=== PATIENT | female | born 1955 | race Caucasian/White ===

== ENCOUNTER → 2018-08-26 09:50 | Emergency (ER) | payer BC ==
[~2018-08-26 09:50] MED LIST: Aspirin 81 mg CHEW TAB* 81 MG TAB.CHEW PO ONE
--- NOTE | 2018-08-26 10:22 | ED ---
HPI Chest Pain - HPI Summary HPI Summary: Pt is a 63 y/o F presenting to the ED with a chief complaint of chest pain, substernal squeezing pain onset this morning around 0800 on her walk. The pain is currently rated a 2-3 out of 10, and it does not radiate. She states she has had this pain before and it usually stays present if she stops walking, and that she does not take medication to help with it. She does not currently take aspirin. She reports feeling a lump in her throat. She denies any diagnosed hx of anxiety, but reports that when she gets palpitations that worsens her anxiety. The pt reports hx of hypothyroidism, is on medication for it, and has not had surgery or nodules associated with it. She also had diet-controlled diabetes mellitus. She reports additional personal history of pilonidal cyst and fam hx of heart disease. She had a stress test done in 2017 that came back completely normal. Pt saw Dr. Cristina, her PCP, two days ago and he noted changes on the EKG that could connote a prior CA, so when pt developed chest discomfort with exertion, she decided to come to the ED for further evaluation. Vitals in room: 71bpm, 142/77 BP, 14 respirations, 100% SaO2. Home Medications Medication Instructions Recorded Confirmed Type [place] Thyroid 120 mcg PO DAILY 06/21/14 06/21/14 History Ibuprofen TAB* 100 mg PO TID PRN 06/21/14 06/21/14 History - History of Current Complaint Chief Complaint: EDChestPainROMI Time Seen by Provider: 08/26/18 10:07 Hx Obtained From: Patient, Family/Clinical Trial Head - , Other: - Dr. Cristina prior to DC Onset/Duration: Started Hours Ago, Atraumatic, Still Present Timing: Intermittent, Lasting Hours Initial Severity: Mild Current Severity: Mild Pain Intensity: 2 Pain Scale Used: 0-10 Numeric Chest Pain Location: Lower Sternal Chest Pain Radiates: No Character: Pressure/Squeezing Aggravating Factor(s): Exertion Alleviating Factor(s): Spontaneous Resolution Associated Signs and Symptoms: Positive: Chest Pain, Anxiety, Palpitations - Risk Factors AMI/ACS Risk Factors: Diabetes, Family History - Allergy/Home Medications Allergies/Adverse Reactions: Allergies Allergy/AdvReac Type Severity Reaction Status Date / Time No Known Allergies Allergy Verified 06/21/14 08:14 PMH/Surg Hx/FS Hx/Imm Hx Previously Healthy: Yes Endocrine/Hematology History: Reports: Hx Diabetes - "diet controlled", Hx Thyroid Disease - hypothyroidism Cardiovascular History: Denies: Hx Hypertension Respiratory History: Denies: Hx Asthma, Hx Chronic Obstructive Pulmonary Disease (COPD) GI History: Denies: Hx Ulcer - Cancer History Hx Chemotherapy: No Hx Radiation Therapy: No - Surgical History Surgery Procedure, Year, and Place: 1978, 1983 Infectious Disease History: No Infectious Disease History: Denies: Hx Clostridium Difficile, Hx Hepatitis, Hx Human Immunodeficiency Virus (HIV), Hx of Known/Suspected MRSA, Hx Shingles, Hx Tuberculosis, Hx Known/ Suspected VRE, Hx Known/Suspected VRSA, History Other Infectious Disease, Traveled Outside the [place] in Last 30 Days - Family History Known Family History: Positive: Cardiac Disease - grandfather CA @ 56, father CABG at 70. - Social History Lives: With Family Alcohol Use: Occasionally Hx Substance Use: No Substance Use Type: Reports: None Hx Tobacco Use: No Smoking Status (MU): Never Smoked Tobacco Review of Systems Constitutional: Negative Positive: Other - "lump in throat" Positive: Chest Pain Respiratory: Negative Gastrointestinal: Negative Positive: no symptoms reported Musculoskeletal: Negative Skin: Negative Neurological: Negative Positive: Anxious - states she is anxious All Other Systems Reviewed And Are Negative: Yes Physical Exam - Summary Physical Exam Summary: Appearance: well-appearing, minimal pain distress, well-nourished Skin: Warm, color reflects adequate perfusion, dry Head: Normal Head/Face inspection, atraumatic Eyes: Conjunctiva clear ENT: Normal inspection Neck: Supple, no nodes, no JVD, thyroid nonpalpable Respiratory: Lungs clear, normal breath sounds, no respiratory distress Cardio: RRR, No murmur, pulses normal, brisk capillary refill Abdomen: Soft, nontender Bowel sounds: Present Musculoskeletal: Strength Intact/ROM intact, no calf tenderness, no edema. Psychological: states she is anxious, but able to lie flat, no tremor, speech clear and fluent Neuro: Alert, muscle tone normal, no focal deficit Triage Information Reviewed: Yes Vital Signs On Initial Exam: Initial Vitals Temp Pulse Resp BP Pulse Ox 97.5 F 65 18 141/92 100 08/26/18 09:52 08/26/18 09:52 08/26/18 09:52 08/26/18 09:52 08/26/18 09:52 Vital Signs Reviewed: Yes Diagnostics - Vital Signs Vital Signs Temp Pulse Resp BP Pulse Ox 08/26/18 09:52 97.5 F 65 18 141/92 100 - Laboratory Result Diagrams: 08/26/18 10:19 08/26/18 10:19 Lab Statement: Any lab studies that have been ordered have been reviewed, and results considered in the medical decision making process. - Radiology CXR Radiology Interpretation Completed By: Radiologist Summary of Radiographic Findings: No evidence for acute disease. ED physician has reviewed this report. - EKG 1006 Cardiac Rate: NL - 60bpm EKG Rhythm: Sinus Rhythm ST Segment: Non-Specific Ectopy: None EKG Comparison: No Significant Change - from 11/06/12 Summary of EKG Findings: SR nl AVIVCT, nl QTc L axis (-33). Poor R wave progression in V1-V3.(unchanged per discussion with Dr. Cristina from 2 days prior). 1449 Cardiac Rate: Bradycardia - 55bpm EKG Rhythm: Sinus Bradycardia ST Segment: Non-Specific Ectopy: PVCs EKG Comparison: No Significant Change - from prior EKG today Summary of EKG Findings: EKG at 1449 shows sinus bradycardia at 55bpm, nonspecific ST, PVCs, and poor R wave progression in V1-V3. No significant change compared with earlier today. Re-Evaluation - Re-Evaluation 1st re-eval Re-Evaluation Time: 11:31 Change: Improved Comment: Discussed results and plan with the pt who is agreeable with staying for the second troponin. Pt reports he squeezing is now intermittent, still rated at 2/10. Vitals in room on re-eval: 125/71 BP, 52bpm, 96% SaO2, and 22 respirations. Pt reports normal HR is between 50 and 55. Second Eval Re-Evaluation Time: 14:30 Change: Improved Comment: Pt states chest pain is minimal, 1-2 at most. Pt is lying flat comfortably. Advised of labs, second EKG ordered to correspond with second troponin, and awaiting discussion with Dr. Cristina, pt's PCP. 3rd re-eval Re-Evaluation Time: 15:33 Change: Improved Comment: Pt informed of results, is presently pain free, and agreeable with the plan of discharge. Chest Pain Course/Dx - Course Course Of Treatment: Pt is a 63 y/o F presenting to the ED with a chief complaint of chest pain, substernal squeezing pain onset this morning around 0800 on her walk. The pain is currently rated a 2-3 out of 10, and it does not radiate. She states she has had this pain before and it usually stays present if she stops walking, and that she does not take medication to help with it. She does not currently take aspirin. She reports feeling a lump in her throat. She denies any diagnosed hx of anxiety, but reports that when she gets palpitations that worsens her anxiety. The pt reports hx of hypothyroidism, is on medication for it, and has not had surgery or nodules associated with it. She also had diet-controlled diabetes mellitus. She reports additional personal history of pilonidal cyst and fam hx of heart disease. She had a stress test done in 2017 that came back completely normal. Pt had an EKG [address] Cristina's office that showed sinus herber and poor R wave progression V1-V3. ( discussed with Dr. Cristina by phone). Vitals in room: 71bpm, 142/77 BP, 14 respirations, 100% SaO2. Pt was given ASA 324mg po in the ED. Nurses notes reviewed. Pts medications reviewed this visit. Pts lab results show Hct 43 D- Dimer of 213, glucose of 159, lactic acid of 1.1, and troponin I of 0.00 x 2 three hours apart. CXR shows no evidence for acute disease. An EKG shows NSR at 60bpm, nonspecific ST changes including poor R wave progression V1-V3, no ectopy , and no acute changes compared with 11/06/12. Second EKG also showed SB, with poor R wave progression V1-V3, PVC's, no acute changes, and no change c/w earlier EKG today. As of 1505, I discussed the case with Dr. Cristina who stated the pt is stable for discharge, and to keep her appointment with cardiology on 09/02/18. He also recommended starting her on an aspirin regimen. Thyroid studies are pending at the time of discharge, and pt is advised to follow up on those results with Dr. Cristina. The pt will be discharged with instructions to follow up with her drum carrier. Dx include exertional chest pain, abnormal EKG, and PVCs. The pt is agreeable with this plan. - Chest Pain Differential Diagnosis/HQI/PQRI: Acute CA, ACS, Angina, Chest Wall, GI Disease, Lower Respiratory Infection, Pulmonary Embolism - Diagnoses Provider Diagnoses: Exertional chest pain, Abnormal EKG, PVCs (premature ventricular contractions) - Provider Notifications Discussed Care Of Patient With: Fern Cristina - agrees with D/C. Advises start ASA 81mg/day. Keep appt with cardiology on 09/02/18 Time Discussed With Above Provider: 15:06 Discharge - Sign-Out/Discharge Documenting (check all that apply): Patient Departure - home Patient Received Moderate/Deep Sedation with Procedure: No - Discharge Plan Condition: Stable Disposition: HOME Patient Education Materials: Chest Pain (ED) Referrals: Dick Mcfarlane MD [Medical Doctor] - (Keep your appointment for 09/02/18. ) Fern Cristina MD [Primary Care Provider] - 1 Week (as scheduled ) Additional Instructions: Your EKG was the same as it was in Dr. Cristina's office. You had two troponin levels 3 hrs apart that were negative, and two EKG's were unchanged. You were given aspirin 324mg in the ER. Your chest xray was unremarkable. The thyroid values are pending at the time of discharge. Dr. Cristina's office will get a copy of these. He will notify you if you need any change in your medication based on these values. Dr. Cristina advised you to keep your scheduled cardiology appointment, that you did not need testing or specialty evaluation sooner. He advised you to start one 81mg aspirin daily. He advised you to continue your thyroid medication as directed. Please return to the ER if you have any new or worsening symptoms. - Billing Disposition and Condition Condition: STABLE Disposition: Home - Attestation Statements Document Initiated by Johanna: Yes Documenting Scribe: Traci Ortega Provider For Whom Johanna is Documenting (Include Credential): Dr. Phoebe Kirk MD. Scribe Attestation: Traci Sabillon, edisoned for Dr. Phoebe Kirk MD. on 08/29/18 at 0146. [place] Documentation Reviewed: Yes Provider Attestation: The documentation as recorded by the scribe, Traci Ortega accurately reflects the service I personally performed and the decisions made by me, Dr. Phoebe Kirk MD. Status of Scribe Document: Viewed Consult Consult: [id number] - Discussed the case with Dr. Cristina who stated the pt is stable for discharge, and to keep her appointment with cardiology. He also recommended starting her on an aspirin regimen.
[2018-08-26 10:34] LABS: ABS Basophils 0 10^3/ul (0-0.2); ABS Eosinophils 0.1 10^3/ul (0-0.6); ABS Lymphocytes 2.2 10^3/ul (1.0-4.8); ABS Monocytes 0.6 10^3/ul (0-0.8); ABS Neutrophils 6.1 10^3/ul (1.5-7.7); ABS Nucleated RBC 0 10^3/ul; Eosinophil % 0.8 %; Hematocrit 43 % (33-41); Hemoglobin 14.3 g/dL (12.0-16.0); Lymphocyte % 24.5 %; Mean Corpuscular HGB Conc 34 g/dL (31-36); Mean Corpuscular Hemoglobin 31 pg (27-31); Mean Corpuscular Volume 92 fL (80-97); Mean Platelet Volume 8.7 fL (7.4-10.4); Nucleated Red Blood Cells % 0; Platelet Count 291 10^3/uL (150-450); Red Blood Count 4.63 10^6 /uL (3.70-4.87); Red Cell Distribution Width 15 % (10.5-15)
[2018-08-26 10:43] LABS: INR 0.94 (0.77-1.02)
[2018-08-26 10:55] LABS: Albumin 4.4 g/dL (3.2-5.2); Albumin/Globulin Ratio 1.5 (1-3); Calcium 9.5 mg/dL (8.6-10.3); EGFR African American 82.9 (>60); EGFR Non-African American 68.5 (>60); Globulin 2.9 g/dL (2-4); Potassium 3.6 mmol/L (3.5-5.0); Total Bilirubin 0.5 mg/dL (0.2-1.0); Total Protein 7.3 g/dL (6.4-8.9)
[2018-08-26 10:56] LABS: CKMB ng/mL 2.1 ng/mL (0.6-6.3)
[2018-08-26 15:51] VITALS: BP 132/72
[2018-08-26 15:59] LABS: T4, Total 4.95 mcg/dL (6.09-12.23)
[2018-08-26 16:45] LABS: TSH (Thyroid Stimulating Horm) 0.06 mcIU/mL (0.34-5.60)
== END | disposition home or self-care (01) ==
LOC: ED 09:50
DX: R07.9 Chest pain, unspecified (principal); R94.31 Abnormal electrocardiogram [ECG] [EKG]; I49.3 Ventricular premature depolarization; R00.1 Bradycardia, unspecified; E03.9 Hypothyroidism, unspecified; E11.9 Type 2 diabetes mellitus without complications; Z82.49 Family history of ischemic heart disease and other diseases of the circulatory system
CPT/HCPCS: 36415; 71045; 80053; 82550; 82553; 83605; 83735; 83880; 84436; 84443; 84479; 84484; 85025; 85379; 85610; 85730; 93005; 99283; A9270-GY

== ENCOUNTER 2018-11-11 09:16 | Emergency (ER) | payer BC ==
[2018-11-11 09:23] VITALS: BP 138/61
--- NOTE | 2018-11-11 10:50 | UC ---
Hand/Wrist HPI - HPI Summary HPI Summary: She jammed her right fifth finger into the saddle of her horse a couple days ago. At first it started to feel better and then it began to get more swollen. She has been jw taping it to the fourth finger. - History Of Current Complaint Chief Complaint: UCUpperExtremity Stated Complaint: FINGER INJURY Time Seen by Provider: 11/11/18 09:52 Hx Obtained From: Patient Onset/Duration: Sudden Onset Severity Initially: Mild Severity Currently: Moderate Pain Intensity: 3 Character Of Pain: Dull, Aching Aggravating Factor(s): Movement Alleviating Factor(s): Other - Hot Tub Associated Signs And Symptoms: Positive: Swelling - Allergies/Home Medications Allergies/Adverse Reactions: Allergies Allergy/AdvReac Type Severity Reaction Status Date / Time No Known Allergies Allergy Verified 11/11/18 09:23 PMH/Surg Hx/FS Hx/Imm Hx Endocrine History: Hypothyroidism - Surgical History Surgical History: Yes Surgery Procedure, Year, and Place: 1978, 1983 - Family History Known Family History: Positive: Cardiac Disease - grandfather PA @ 56, father CABG at 70. - Social History Alcohol Use: Occasionally Alcohol Amount: 4 oz of wine a night Substance Use Type: None Smoking Status (MU): Never Smoked Tobacco Household Exposure Type: Pipe Review of Systems All Other Systems Reviewed And Are Negative: Yes Musculoskeletal: Positive: Decreased ROM Physical Exam - Summary Physical Exam Summary: Is nontoxic in appearance with stable vital signs Triage Information Reviewed: Yes Appearance: Well-Appearing Vital Signs: Initial Vital Signs Temp 98.8 F 11/11/18 09:21 Pulse 65 11/11/18 09:21 Resp 17 11/11/18 09:21 BP 138/61 11/11/18 09:21 Pulse Ox 100 11/11/18 09:21 Vital Signs Reviewed: Yes Musculoskeletal: Positive: Strength Intact, ROM Intact - She is swollen and tender over the middle phalanx of her fifth finger. Diagnostics - Radiology fifth finger right hand Radiology Interpretation Completed By: Radiologist Summary of Radiographic Findings: Comminuted middle phalanx fracture. Hand/Wrist Course/Dx - Course Course Of Treatment: Her middle phalanx is fractured and we placed her in an AlumaFoam splint which should give her more protection then the jw wrap. - Differential Dx/Diagnosis Provider Diagnosis: Finger fracture, right Discharge - Sign-Out/Discharge Documenting (check all that apply): Patient Departure All imaging exams completed and their final reports reviewed: Yes - Discharge Plan Condition: Stable Disposition: HOME Patient Education Materials: Finger Fracture (ED) Referrals: Fern Cristina MD [Primary Care Provider] - Additional Instructions: Please follow up with her PCP to reevaluate the healing in a week or so. Pressure was slightly elevated here in clinic, understandably, I would recommend following up with your PCP for further evaluation. - Billing Disposition and Condition Condition: STABLE Disposition: Home
== END 2018-11-11 11:00 | disposition home or self-care (01) ==
LOC: UCEAST 09:16
DX: S62.626A Displaced fracture of middle phalanx of right little finger, initial encounter for closed fracture (principal); W22.8XXA Striking against or struck by other objects, initial encounter; Y92.9 Unspecified place or not applicable
CPT/HCPCS: 73140; 99212; G0463

== ENCOUNTER 2019-02-10 19:50 | Emergency (ER) | payer BC ==
[2019-02-10 20:04] VITALS: BP 149/83
--- NOTE | 2019-02-10 20:53 | UC ---
Head Injury HPI - HPI Summary HPI Summary: 63-year-old woman comes in with a chief complaint of head neck injury. Prior to arrival today she fell off a horse and landed on her upper back and occiput. She did have brief loss of consciousness and she did see geometric shapes for about 10 minutes. No weakness or numbness no further vision changes no nausea no vomiting. No difficulty with speech. She does continue to have a headache. She also has some neck pain. Denies any other injury. No complaint of any chest pain shortness of breath abdominal pain leg or arm pain. She is not on blood thinners. She does have a laceration on the left side of her nose she feels is due to her glasses. Denies any facial pain otherwise. - History Of Current Complaint Chief Complaint: UCHeadInjury Stated Complaint: HIT HEAD Time Seen by Provider: 02/10/19 20:44 Pain Intensity: 5 - Allergies/Home Medications Allergies/Adverse Reactions: Allergies Allergy/AdvReac Type Severity Reaction Status Date / Time No Known Allergies Allergy Verified 02/10/19 20:04 Home Medications: Home Medications Leutin 1 tab PO DAILY 02/10/19 [History Confirmed 02/10/19] PMH/Surg Hx/FS Hx/Imm Hx Previously Healthy: Yes Endocrine History: Hypothyroidism - Surgical History Surgical History: Yes Surgery Procedure, Year, and Place: 1978, 1983 - Family History Known Family History: Positive: Cardiac Disease - grandfather [place] @ 56, father CABG at 70. - Social History Alcohol Use: Daily Alcohol Amount: bottle of cider at night Substance Use Type: None Smoking Status (MU): Never Smoked Tobacco Household Exposure Type: Pipe Review of Systems All Other Systems Reviewed And Are Negative: Yes Constitutional: Positive: Negative Skin: Positive: Other - SEE HPI Eyes: Positive: Negative ENT: Positive: Negative Respiratory: Positive: Negative Cardiovascular: Positive: Negative Gastrointestinal: Positive: Negative Motor: Positive: Negative Neurovascular: Positive: Negative Musculoskeletal: Positive: Negative Neurological: Positive: Headache Psychological: Positive: Negative Is Patient Immunocompromised?: No Physical Exam Triage Information Reviewed: Yes Appearance: Well-Appearing, No Pain Distress, Well-Nourished Vital Signs: Initial Vital Signs Temp 98.9 F 02/10/19 19:58 Pulse 72 02/10/19 19:58 Resp 18 02/10/19 19:58 BP 149/83 02/10/19 19:58 Pulse Ox 98 02/10/19 19:58 Vital Signs Reviewed: Yes Eye Exam: Normal Eyes: Positive: Conjunctiva Clear, Other: - PERRLA EOMI no photophobia ENT: Positive: TMs normal - No hemotympanum Neck: Positive: Other: - On initial exam patient had a Vernon collar on. After the CT came back normal she's got minimal posterior neck tenderness on either side of the spinous processes. Minimal occipital tenderness to palpation no swelling in the occiput. Respiratory: Positive: Lungs clear, Normal breath sounds, No respiratory distress Cardiovascular: Positive: RRR Musculoskeletal: Positive: Strength Intact, ROM Intact Neurological: Positive: Alert Psychological: Positive: Normal Response To Family, Age Appropriate Behavior Skin: Positive: Other - 1 cm partial-thickness laceration on the left side of the bridge of the nose with no active bleeding. Head Injury Course/Dx - Course Course Of Treatment: Preparer: ([id number]) Loan Services Professional: (MAX) Report Date: 2018 20:34:00 Report Status: Final ======= Start of Report Content EXAM: CT Cervical Spine Without Contrast EXAM DATE/TIME: 02/10/2019 8:34 PM CLINICAL HISTORY: 63 years old, female; Pain and injury or trauma; Initial encounter; Sprain or strain, cervical ligaments; Neck pain; Injury details: General mild headache after fall today. Brief blurred vision and loc. Some neck stiffness, ; additional info: Pain S/P injury TECHNIQUE: Imaging protocol: Computed tomography images of the cervical spine without contrast. Radiation optimization: All CT scans at this facility use at least one of these dose optimization techniques: automated exposure control; mA and/or kV adjustment per patient size (includes targeted exams where dose is matched to clinical indication); or iterative reconstruction. COMPARISON: THY US THYROID 10/17/2014 10:10 AM FINDINGS: Vertebrae: No acute fracture or subluxation. Vertebral body heights are maintained. Multilevel degenerative change, most pronounced in the mid and lower cervical spine. Discs/Spinal canal/Neural foramina: No spinal stenosis. No neural foraminal narrowing. Epidural space: No epidural hematoma. Prevertebral Space: Prevertebral soft tissues are normal. Soft tissues: Unremarkable. Lungs: Lung apices are normal. IMPRESSION: No acute findings. To contact [facility] with a general question: [facility] - [phone] For direct physician to physician contact: Physician Hotline - [phone] [facility] ([facility] Facility ID #[id number]) End of Report Content ====== Preparer: ([id number]) Loan Services Professional: (VRAD) Report Date: 2018 20:32:00 Report Status: Final ======= Start of Report Content EXAM: CT Head Without Contrast EXAM DATE/TIME: 02/10/2019 8:32 PM CLINICAL HISTORY: 63 years old, female; Pain and injury or trauma; Initial encounter; Concussion / head injury; With loss of consciousness; Loss of consciousness for 30 minutes or less; Post-traumatic; Injury details: General mild headache after fall today. Brief blurred vision and loc. Some neck stiffness, ; additional info : Pain S/P injury TECHNIQUE: Imaging protocol: Computed tomography of the head without contrast. Radiation optimization: All CT scans at this facility use at least one of these dose optimization techniques: automated exposure control; mA and/or kV adjustment per patient size (includes targeted exams where dose is matched to clinical indication); or iterative reconstruction. COMPARISON: No relevant prior studies available. FINDINGS: Brain: There is no acute intracranial hemorrhage, extraaxial collection or mass effect. Cox white differentiation is maintained. Periventricular white matter lucency likely represents small vessel ischemic change. Diffuse cortical volume loss, consistent with patient's age. Ventricles: Normal configuration. No hydrocephalus. Bones/joints: No acute fracture. Sinuses: Normal as visualized. No air fluid levels. Mastoid air cells: No mastoid effusion. Soft tissues: Normal. IMPRESSION: No acute intracranial findings. Minimal age-related cortical volume loss and chronic white matter ischemic change. To contact [facility] with a general question: [facility] - [phone] For direct physician to physician contact: Physician Hotline - [phone] [facility] ([facility] Facility ID #[id number]) End of Report Content I discussed the CT reports with the patient and her family. Plan is ibuprofen or acetaminophen as needed. Lacerations do not require any repair. Patient given a TD Here in clinic. Patient get reevaluated if worse or any questions or concerns. - Differential Dx/Diagnosis Provider Diagnosis: Head injury, Concussion, Cervical strain, Facial laceration Discharge ED - Sign-Out/Discharge Documenting (check all that apply): Patient Departure All imaging exams completed and their final reports reviewed: No Studies - Discharge Plan Condition: Stable Disposition: HOME Patient Education Materials: Concussion (ED), Head Injury (ED), Acute Neck Pain (ED), Facial Laceration (ED), Laceration Without Closure (ED) Referrals: Fern Cristina MD [Primary Care Provider] - Additional Instructions: FOLLOW UP WITH YOUR DOCTOR IF NOT COMPLETELY IMPROVED. GO TO THE EMERGENCY DEPARTMENT IF YOUR CONDITION WORSENS; PAIN, WEAKNESS, NUMBNESS, DIFFICULTY WITH VISION OR SPEECH, VOMITING OR ANY QUESTIONS OR CONCERNS. - Billing Disposition and Condition Condition: STABLE Disposition: Home
[2019-02-10] MEDS ORDERED: Tetan/Diph/Pertus SYR(Tdap)* 0.5 ML SYR(BOOSTRIX) use SYR IM ONE (21:37)
== END 2019-02-10 21:40 | disposition home or self-care (01) ==
LOC: UCEAST 19:50
DX: S06.0X0A Concussion without loss of consciousness, initial encounter (principal); S16.1XXA Strain of muscle, fascia and tendon at neck level, initial encounter; S01.81XA Laceration without foreign body of other part of head, initial encounter; V80.010A Animal-rider injured by fall from or being thrown from horse in noncollision accident, initial encounter; Y93.52 Activity, horseback riding; Y92.9 Unspecified place or not applicable; Y99.8 Other external cause status; E03.9 Hypothyroidism, unspecified; Z23 Encounter for immunization
CPT/HCPCS: 70450; 72125; 90471; 90715; 99212; G0463

== ENCOUNTER 2019-04-12 09:00 | Inpatient (IN) | payer BC ==
--- NOTE | 2019-04-05 18:01 | HP ---
HISTORY AND PHYSICAL: DATE OF ADMISSION/SURGERY: 04/14/19 DATE OF OFFICE VISIT: 04/04/19 SURGEON: Cheri Schuster MD.* (DICTATED BY PATRICIO FINCH) PROCEDURE: Left total knee arthroplasty. CHIEF COMPLAINT: Left knee pain. HISTORY OF PRESENT ILLNESS: Ms. Nieves is a 63-year-old female with continued complaints of left knee pain. She has failed conservative treatment and elected to proceed with a left total knee arthroplasty. PAST MEDICAL HISTORY: Hypothyroidism, sleep apnea, and diet controlled diabetes. PAST SURGICAL HISTORY: x2 and pilonidal cyst removal. CURRENT MEDICATIONS: 1. Debrox ear drops as needed. 2. Lutein 40 mg 1 capsule daily. 3. [place] Thyroid 120 mg daily. 4. Afrin nasal spray as needed. ALLERGIES: No known drug allergies. FAMILY HISTORY: Alzheimer's, coronary artery disease, and stroke. SOCIAL HISTORY: She is a 63-year-old female. She lives with her . She does not smoke or use drugs. Uses occasional alcohol. REVIEW OF SYSTEMS: A complete 14-point review of systems was reviewed with the patient. It was positive for thyroid disease. She denies history of DVT, PE, hepatitis, HIV, or anesthesia problems. PHYSICAL EXAMINATION GENERAL: She is well developed, well nourished, in no acute distress. VITAL SIGNS: She stands 64 inches tall, weighs 151 pounds. Blood pressure is 122/82, heart rate 62. HEENT: Normocephalic, atraumatic. NECK: Supple. No palpable lymph nodes. PULMONARY: The lungs are clear to auscultation bilaterally. CARDIO: Regular rate and rhythm. Strong S1, S2. ABDOMEN: Soft, nontender, nondistended. NEUROLOGIC: She is alert and oriented x3. MUSCULOSKELETAL: Left lower extremity: The skin is intact. There are no open wounds or abrasions. She has a moderate effusion of the left knee joint. Range of motion is 5 to 120 degrees of flexion. She has some tenderness along the medial joint line. There is a varus deformity of the knee. She is able to dorsiflex and plantarflex with 2+ dorsalis pedis pulses and intact sensation. ASSESSMENT AND PLAN: Ms. Nieves is a 63-year-old female with end-stage osteoarthritis of the left knee. She was failed conservative treatment and elected to proceed with a left total knee arthroplasty. The surgery is scheduled for 04/14/[address] Schuster discussed the risks and benefits of the surgery at today's visit and all of her questions were answered. She will follow up with Dr. Schuster 2 weeks after the surgery. PATRICIO FINCH [id number]/[facility] #: [id number] ANNIE
[2019-04-13] MEDS ORDERED: Buffered Lidocaine 1% SYRIN* 1 ML/SYRINGE INTRADERM ONE (08:51)
[2019-04-14] MEDS ORDERED: Tranexamic Acid 1,000 MG in NS 0.9% 50 ML* (outpatient use) IV SCH ×2
[2019-04-14] MEDS ORDERED: Lactated Ringers 1000 ML Bag* 1,000 ML IV SCH (06:00)
--- OUTSIDE RECORDS SUMMARY | 2019-04-14 07:59 | XMS REPORT | Continuity of Care Document ---
:1955 External Reference #:[id number] Author Name Cheri Schuster M.D. 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 Onset: 11/01/2015 Difficulty breathing Yumi Hancock DNP, RN, CHILDREN'S PROGRAM COORDINATOR-BC Onset: 12/18/2015 Obstructive sleep apnea syndrome Yumi Hancock DNP, RN, CHILDREN'S PROGRAM COORDINATOR-BC Onset: 01/2016 Social History Type Date Description Comments Sex Unknown Tobacco Use Start: Unknown Never Smoked Cigarettes Smoking Status Reviewed: 04/04/19 Never Smoked Cigarettes ETOH Use Occasionally consumes alcohol Tobacco Use Start: Unknown Patient has never smoked Recreational Drug Use Denies Drug Use Exercise Type/Frequency Exercises regularly Exercise Type/Frequency Horseback riding "As much as possible" Weather dependent Allergies, Adverse Reactions, Alerts Description No Known Drug Allergies Medications Active Medications SIG Qnty Indications Ordering Provider Date Debrox 5-10 drops in each Unknown 6.5% Solution ear prn Lutein 1 cap po daily Unknown 40mg Capsules [place] Thyroid 1 by mouth every Unknown 120mg day Tablets Afrin Nasal [place] 1 spray as Unknown 0.05% directed prn Solution Medications Administered in Office Medication SIG Qnty Indications Ordering Provider Date Triamcinolone (Kenalog) Vania Brooks MD 01/25/2019 Injection Injection Hyaluronan Or Ayleen Yeung PA-C 10/01/2018 Derivative, Euflexxa Per Dose Injection Injection Hyaluronan Or Vania Brooks MD 09/23/2018 Derivative, Euflexxa Per Dose Injection Injection Hyaluronan Or Vania Brooks MD 09/16/2018 Derivative, Euflexxa Per Dose Injection Technetium TC 99M Luis Armando Moy DO [facility] 09/08/2018 Tetrofosmin, Per Unit Dose Up To 40 Millicuries Injection Triamcinolone (Kenalog) Vania Brooks MD 07/09/2018 Injection Triamcinolone (Kenalog) Vania Brooks MD 07/03/2016 Injection Hyaluron Or Vania Brooks MD 02/26/2016 Derivative,Orthovisc,For Intra-Articular Inj Per Dose Injection Hyaluron Or Vania Brooks MD 02/12/2016 Manav,Orthovisc,For Intra-Articular Inj Per Dose Injection Hyaluron Or Vania Brooks MD 02/01/2016 Manav,Orthovisc,For Intra-Articular Inj Per Dose Injection Triamcinolone (Kenalog) Vania Brooks MD 01/10/2016 Injection Immunizations Description No Information Available Vital Signs Date Vital Result Comment 04/04/2019 9:28am Height 64 inches 5'4" Weight 151.00 lb Heart Rate 62 /min BP Systolic 122 mmHg BP Diastolic 82 mmHg Body Temperature 97.4 F Pain Level 5 BMI (Body Mass Index) 25.9 kg/m2 03/22/2019 8:38am Height 64 inches 5'4" Weight 151.00 lb with shoes Heart Rate 72 /min BP Systolic Sitting 110 mmHg lue reg cuff BP Diastolic Sitting 64 mmHg lue reg cuff BP Systolic Standing 112 mmHg lue reg cuff BP Diastolic Standing 64 mmHg lue reg cuff Respiratory Rate 14 /min BMI (Body Mass Index) 25.9 kg/m2 Ejection Fraction 60-65% echo.09/09/18 Results Description No Information Available Procedures Date Code Description Status 03/22/2019 40556 EKG Tracing & Interpretation Completed 01/25/2019 36107 Inject/Drain Joint/Bursa Major W/O US Completed Medical Devices Description No Information Available Encounters Type Date Location Provider Dx Diagnosis Office Visit 03/22/2019 [facility] Luis Armando Buchanan Z01.810 Encounter for 8:40a Of Chelsey Moy DO FACC preprocedural cardiovascular examination E11.9 Type 2 diabetes mellitus without complications E78.5 Hyperlipidemia, unspecified G47.33 Obstructive sleep apnea (adult) (pediatric) E03.9 Hypothyroidism, unspecified I49.3 Ventricular premature depolarization Office Visit 02/11/2019 [facility] M17.12 Unilateral primary 9:30a [facility] osteoarthritis, left [place] knee M25.562 Pain in left knee M25.462 Effusion, left knee Assessments Date Code Description Provider 04/04/2019 M25.562 Pain in left knee Cheri Schuster M.D. 04/04/2019 M17.12 Unilateral primary osteoarthritis, left Cheri Schuster M.D. knee 04/04/2019 M25.462 Effusion, left knee Cheri Schuster M.D. 03/22/2019 Z01.810 Encounter for preprocedural Luis Armando Moy DO [facility] cardiovascular examination 03/22/2019 E11.9 Type 2 diabetes mellitus without Luis Armando Moy, DO [facility] complications 03/22/2019 E78.5 Hyperlipidemia, unspecified Luis Armando Moy, DO [facility] 03/22/2019 G47.33 Obstructive sleep apnea (adult) Luis Armando Moy DO [facility] (pediatric) 03/22/2019 E03.9 Hypothyroidism, unspecified Luis Armando Moy, DO [facility] 03/22/2019 I49.3 Ventricular premature depolarization Luis Armando Moy, DO [facility] 02/11/2019 M17.12 Unilateral primary osteoarthritis, left Cheri Schuster M.D. knee 02/11/2019 M25.562 Pain in left knee Cheri Schuster M.D. 02/11/2019 M25.462 Effusion, left knee Cheri Schuster M.D. 01/25/2019 M17.12 Unilateral primary osteoarthritis, left Vania Brooks MD knee Plan of Treatment Future Appointment(s):04/27/2019 9:00 am - Cheri Schuster M.D. at [facility] at [place]/14/2019 8:30 am - Torsten Almaraz PA-C at [facility] at [place]/14/2019 8:30 am - PATRICIO De Los Santos at [facility] at [place]/14/2019 8:30 am - Cheri Schuster M.D. at [facility] at [place]/04/2019 - Cheri Schuster M.D.M25.562 Pain in left kneeFollow up:Follow up: 2 weeks after hkzppuxS59.12 Unilateral primary osteoarthritis, left kneeM25.462 Effusion, left knee Functional Status Description No Information Available Mental Status Description No Information Available Referrals Description No Information Available
--- OUTSIDE RECORDS SUMMARY | 2019-04-14 08:00 | XMS REPORT | Continuity of Care Document ---
:1955 External Reference #:[id number] Author Name Luis Armando Moy DO [facility]ACC (transmitted by agent of provider Priscilla Nam) Address [address] [place] [address] Care Team Providers Name Role Phone John West MD - Family Care Team Information Programmer Developer [phone] Medicine Problems Active Problems Provider Date Localized, primary osteoarthritis Castro Bullard M.D. Onset: 11/01/2015 Difficulty breathing Yumi Hancock DNP, RN, AMUSEMENT CENTRE MANAGER-BC Onset: 12/18/2015 Obstructive sleep apnea syndrome Yumi Hancock DNP, RN, AMUSEMENT CENTRE MANAGER-BC Onset: 01/2016 Social History Type Date Description Comments Sex Unknown Tobacco Use Start: Unknown Never Smoked Cigarettes Smoking Status Reviewed: 03/22/19 Never Smoked Cigarettes ETOH Use Occasionally consumes [...] 1 cap po daily Unknown 40mg Capsules [place] Thyroid 1 by mouth every Unknown 120mg day Tablets Afrin Nasal [place] 1 spray as Unknown 0.05% directed prn [...] Technetium TC 99M Luis Armando Moy DO [facility] 09/08/2018 Tetrofosmin, Per Unit Dose Up To 40 Millicuries Injection Triamcinolone (Kenalog) Vania Brooks MD 07/09/2018 Injection Triamcinolone (Kenalog) Vania Brooks MD 07/03/2016 Injection Hyaluron Or Vania Brooks MD 02/26/2016 Derivative,Orthovisc,For Intra-Articular Inj Per Dose Injection Hyaluron Or Vania Brooks MD 02/12/2016 Derivative,Orthovisc,For Intra-Articular Inj Per Dose Injection Hyaluron Or Vania Brooks MD 02/01/2016 Derivative,Orthovisc,For Intra-Articular Inj Per Dose Injection Triamcinolone (Kenalog) Vania Brooks MD 01/10/2016 Injection Immunizations Description No Information Available Vital Signs Date Vital Result Comment 03/22/2019 8:38am Height 64 inches 5'4" Weight 151.00 lb with shoes Heart Rate 72 /min BP Systolic Sitting 110 mmHg lue reg cuff BP Diastolic Sitting 64 mmHg lue reg cuff BP Systolic Standing 112 mmHg lue reg cuff BP Diastolic Standing 64 mmHg lue reg cuff Respiratory Rate 14 /min BMI (Body Mass Index) 25.9 kg/m2 Ejection Fraction 60-65% echo.09/09/18 02/11/2019 9:46am Height 64 inches 5'4" Weight 147.00 lb Heart Rate 67 /min BP Systolic 141 mmHg BP Diastolic 81 mmHg Respiratory Rate 13 /min Body Temperature 98.5 F Pain Level 1 BMI (Body Mass Index) 25.2 kg/m2 Results Description No Information Available Procedures Date Code Description Status 03/22/2019 28868 EKG Tracing & Interpretation Completed 01/25/2019 Inject/Drain Joint/Bursa Major W/O US Completed 10/01/2018 Inj/Aspir Major JT Or Bursa W/ US Completed 09/23/2018 Inj/Aspir Major JT Or Bursa W/ US Completed Medical Devices Description No Information Available Encounters Type Date Location Provider Dx Diagnosis Office Visit 02/11/2019 [facility] Cheri Schuster, M17.12 Unilateral primary 9:30a at [place] M.D. osteoarthritis, left knee M25.562 Pain in left knee M25.462 Effusion, left knee Assessments Date Code Description Provider 03/22/2019 Z01.810 Encounter for preprocedural Luis Armando Moy DO [facility] cardiovascular examination 02/11/2019 M17.12 Unilateral primary osteoarthritis, left Cheri Schuster M.D. knee 02/11/2019 M25.562 Pain in left knee Cheri Schuster M.D. 02/11/2019 M25.462 Effusion, left knee Cheri Schuster M.D. 01/25/2019 M17.12 Unilateral primary osteoarthritis, left Vania Brooks MD knee 10/01/2018 M17.12 Unilateral primary osteoarthritis, left Ayleen Yeung PA-C knee 10/01/2018 M17.12 Unilateral primary osteoarthritis, left Vania Brooks MD knee 09/23/2018 M17.12 Unilateral primary osteoarthritis, left Vania Brooks MD knee Plan of Treatment Future Appointment(s):04/04/2019 9:00 am - Cheri Schuster M.D. at [facility] at [place]/14/2019 8:30 am - Cheri Schuster M.D. at [facility] at [place]/22/2019 - Luis Armando Moy DO FACCZ01.810 Encounter for preprocedural cardiovascular examination Functional Status Description No Information Available Mental Status Description No Information Available Referrals Description No Information Available
--- OUTSIDE RECORDS SUMMARY | 2019-04-14 08:00 | XMS REPORT | Continuity of Care Document ---
:1955 External Reference #:[id number] Author Name John West MD Address [address] [place] [address] Care Team Providers Name Role Phone John West MD - Family Care Team Information Communications Department Head [phone] Medicine Problems Description No Information Available Social History Type Date Description Comments Sex Unknown ETOH Use Occasionally consumes alcohol Tobacco Use Start: Unknown Nonsmoker Smoking Status Reviewed: 03/21/19 Nonsmoker Allergies, Adverse Reactions, Alerts Description No Known Drug Allergies Medications Active Medications SIG Qnty Indications Ordering Provider Date [place] Thyroid 1 po qd Unknown 120mg Tablets Lutein daily Unknown 40mg Capsules Metamucil 2 tablespoons Unknown 28.3% Powder Afrin 12 Hour 1-2 sprays per Unknown 0.05% nostril every 12 Solution hours x 3 days Immunizations Description No Information Available Vital Signs Date Vital Result Comment 03/21/2019 1:51pm BP Systolic 130 mmHg BP Diastolic 80 mmHg Heart Rate 74 /min Body Temperature 98.1 F Height 63 inches 5'3" Weight 150.00 lb BMI (Body Mass Index) 26.6 kg/m2 Results Test Date Facility Test Result H/L Range Note Laboratory test 03/21/2019 [facility] TSH <pending> 0.5-5.0 finding Laboratory test 03/21/2019 [facility] Hemoglobin A1c 6.5% % High 4.1 -5.7 finding (707)- - (Fma) Procedures Date Code Description Status 03/21/2019 70993650 Mammogram Completed Medical Devices Description No Information Available Encounters Description No Information Available Assessments Date Code Description Provider 03/21/2019 Z01.818 Encounter for other preprocedural John West MD examination 03/21/2019 M17.12 Unilateral primary osteoarthritis, left John West MD knee 03/21/2019 E11.9 Type 2 diabetes mellitus without John West MD complications 03/21/2019 E03.9 Hypothyroidism, unspecified John West MD Plan of Treatment 03/21/2019 - John West MDZ01.818 Encounter for other preprocedural examinationComments:take NO aspirin 14 days before surgery.Stop all NSAID's ( ibuprofen) 5 days before surgery.Take your Thyroid meds like usual.Bring your CPAP device to the hospital.M17.12 Unilateral primary osteoarthritis, left kneeE11.9 Type 2 diabetes mellitus without ksnuadpfedngtY29.9 Hypothyroidism, unspecifiedAllComments:Medication Management Patient Understands medications she 's taking? Yes No Are there Barriers to Adherence? Yes No Has the patient been asked about herbal supplements and therapies, and OTC meds? Yes No Functional Status Description No Information Available Mental Status Description No Information Available Referrals Description No Information Available
[2019-04-14] MEDS ORDERED: ceFAZolin 2 GM in NS PREMIX(*) 2 GM/100 ML BAG IVPB ONE (08:33)
[2019-04-14] MEDS ORDERED: Propofol* 10 MG/ML 20 ML BTL ONE (08:36)
[2019-04-14] MEDS ORDERED: Dexmedetomidine* 200 MCG/2 ML 2 ML VIAL ONE (08:37)
[2019-04-14] MEDS ORDERED: ROPIVACAINE 5 MG/ML 30 ML BTL (0.5%) ONE ×2 (08:37→10:26)
[2019-04-14] MEDS ORDERED: Lidocaine 2% PF * 5 ML VIAL ONE (08:37)
[2019-04-14] MEDS ORDERED: fentaNYL* 50 MCG/ML 2 ML VIAL (100 MCG VIAL) ONE ×3 (08:40→13:39)
[2019-04-14] MEDS ORDERED: Midazolam* 1 MG/ML 2 ML VIAL (2 MG) ONE ×2 (08:40→11:07)
[2019-04-14] MEDS ORDERED: EPHEDrine (Pressors)* 50 MG/ML VIAL ONE ×2 (08:42→13:12)
[2019-04-14] MEDS ORDERED: Acetaminophen IV 1GM/100ML * 100 ML ONE ×2 (09:13→13:36)
[2019-04-14] MEDS ORDERED: Ketorolac INJ* 30 MG/ML 1 ML VIAL ONE (11:49)
[2019-04-14] MEDS ORDERED: Ondansetron INJ* 2 MG/ML VIAL ONE (11:49)
[2019-04-14] MEDS ORDERED: Metoclopramide IV* 5 MG/ML 2 ML VIAL ONE (11:49)
[2019-04-14] MEDS ORDERED: Dexamethasone IV* 4 MG/ML 1 ML (4 MG) ONE (11:49)
[2019-04-14] MEDS ORDERED: hydrALAZINE IV* 20 MG/ML VIAL ONE (11:57)
[2019-04-14] MEDS ORDERED: oxyCODONE TAB* 5 MG TAB PO PRN (12:33)
[2019-04-14] MEDS ORDERED: DiMENhydriNATE IV* 50 MG/ML VIAL IV PUSH PRN (12:33)
[2019-04-14] MEDS ORDERED: Naloxone* 0.4 MG/ML 1 ML VIAL IV PRN (12:33)
[2019-04-14] MEDS ORDERED: diPHENhydraMINE IV* 50 MG/ML 1 ml VIAL (BENADRYL) IV PRN (14:12)
[2019-04-14] MEDS ORDERED: oxyCODONE/Acetamin 5/325 MG* TAB PO PRN (14:12)
[2019-04-14] MEDS ORDERED: Ondansetron TAB* 4 MG PO PRN (14:12)
[2019-04-14] MEDS ORDERED: Polyethylene Glycol 3350* 17 GM PACKET PO PRN (14:12)
[2019-04-14] MEDS ORDERED: Ondansetron ODT TAB* 4 MG PO PRN (14:12)
[2019-04-14] MEDS ORDERED: diPHENhydraMINE PO* 25 MG PO PRN (14:12)
[2019-04-14] MEDS ORDERED: Magnesium Hydroxide LIQ* 30 ML UDC PO PRN (14:12)
[2019-04-14] MEDS ORDERED: HYDROmorphone INJ1* 1 MG/ML SYRINGE ONE ×2 (14:20→15:09)
[2019-04-14] MEDS: HYDROmorphone INJ1* 1 MG/ML SYRINGE IV PRN ×5 (14:26→14:57)
[2019-04-14] MEDS ORDERED: oxyCODONE TAB* 5 MG TAB ONE (14:35)
--- NOTE | 2019-04-14 16:06 | PN ---
Progress Note - Progress Note Date of Service: 04/14/19 Note: Pt seen at bedside POD 0. She feels nauseous though has not vomit. Denies CP, SOB, dizziness. Knee pain is well controlled. DF/PF intact. DP2+, sensation intact to light touch distally. Dressing CDI.
[2019-04-14] MEDS: Lactated Ringers 1000 ML Bag* 1,000 ML IV SCH (16:15)
[2019-04-14] MEDS: Ondansetron INJ* 2 MG/ML VIAL IV PRN (16:59)
[2019-04-14] MEDS: ceFAZolin 1 GM ADVAN(*) 1 GM in NS 0.9% 50 ML* 50 ML IVPB SCH (19:53)
[2019-04-14] MEDS: Docusate CAP* 100 MG PO SCH (19:56)
[2019-04-14] MEDS: traMADol TAB* 50 MG PO PRN (20:00)
[2019-04-14] MEDS: Magnesium Hydroxide LIQ* 30 ML UDC PO SCH (20:08)
--- NOTE | 2019-04-14 20:40 | OP ---
Operative Report - Blank - Operative Report Date of Operation: 04/14/19 Note: JAZMIN SHIPLEY 1955 Date of Surgery: 04/14/19 [facility] MD Heater Furnace: Chanel CURRY did help throughout the procedure with preparation of the knee, wound retraction, manipulation of the knee, and wound closure. Anesthesiologist: Jone Osman MD Anesthesia Type: Spinal Preoperative Diagnosis: Left severe degenerative osteoarthritis of the knee Postoperative Diagnosis: As above Procedure Performed: Left Total Knee Arthroplasty with the Navio Robotic Navigation System Tourniquet time: 73 minutes Complications: None Specimen: Bone and cartilage from the left knee joint sent to pathology. Hardware Used: Cemented Briceño and Nephew total knee hardware was used - For the femur a size 4 left oxinium legion posterior stabilized femoral component, for the tibia a size 3 left charles II tibial baseplate, for the insert a size 9mm 3 -4 posterior stabilized articular polyethylene insert, and for the patella a size 35 3-peg all poly patella. Brief History/Indication: JAZMIN SHIPLEY was known in clinic and had a history of severe left knee pain and swelling. She failed conservative treatment with anti-inflammatories, pain pills, intra-articular injections and physical therapy. She elected to undergo left total knee arthroplasty due to continued pain and decreased quality of life. Radiographs showed severe end stage osteoarthritis of the knee with bone on bone contact. Informed consent was obtained from the patient. She understood the risks of surgery included but were not limited to: bleeding, infection, damage to nearby structures, intraoperative fracture, nerve palsy, failure of the hardware, early loosening, knee stiffness or loss of motion, anesthesia complications, stroke, heart attack , blood clot and . The patient was advised of the increased risks associated with the pins of the Navio robotic system. She wished to proceed. Intra-Operative Findings: Intraoperatively the patient was noted to have severe loss of cartilage in all 3 compartments of the knee. Description of the Procedure: JAZMIN SHIPLEY was identified in the preanesthesia unit. Her left knee was marked as the correct operative side. Informed consent was signed and placed in the chart. The patient was taken to the operating room and placed under anesthesia without complication. A hilario catheter was placed. A tourniquet was placed on the left thigh. The left lower extremity was prepped and draped in the usual sterile fashion. Preoperative time-out was made to correctly identify the patient, side and site. Appropriate intraoperative antibiotics were given within one hour of incision. Tourniquet was inflated. A midline incision was made and carried sharply down to the extensor mechanism. A new 10 blade was used to make a standard medial parapatellar arthrotomy. The patella was subluxed laterally. Electrocautery was used to dissect soft tissue off the superomedial tibia to the midsagittal plane. The knee was flexed up. The anterior horn of the lateral meniscus and the ACL/PCL were sharply incised. The checkpoint screws were placed in the femur and the tibia, and the 4 pins were placed in the femur and tibia. The arrays were attached and the anatomy of the knee was mapped using the Navio navigation system. The hardware size and placement was decided using the Navio system. The Navio robotic margo was used to make the distal femoral cut. The external rotation guide was pinned on the distal femur and the distal femur was sized to a size 4. The size 4 multi-cutting jig was pinned on the distal femur. The oscillating saw was used to make the appropriate 4 chamfer cuts. Next the PCL was completely released. The extramedullary tibial cutting guide was pinned on the proximal tibia and the angle of the cut was chosen using the Navio angle guide. The oscillating saw was used to make the proximal tibial cut perpendicular to the mechanical axis of the tibia. The bone was carefully removed. The knee was brought out into full extension. The spacer block was placed and had excellent fit with the knee in full extension. The medial and lateral ligaments were well balanced. The flexion and extension gaps were well balanced. The knee was flexed up. Lamina career coordinator was placed both medially and laterally. Any remaining meniscus was removed with electrocautery. Curved osteotome was used to remove any posterior osteophytes. The tibial tray and drop stephanie were placed and confirmed a satisfactory tibial cut. The size 4 left femoral trial was impacted onto the distal femur. This trial had excellent fit and stability. The box for the posterior stabilized implant was prepared using a box cut osteotome and a reamer. Next a tibial tray trial and 9 mm insert trial was placed. The knee was taken through a range of motion and had full extension to 130 degrees of flexion. Patellofemoral tracking was satisfactory. The final Navio checkpoints were collected and the 2 screws/4 pins were removed. The patella was inverted and sized to a size 35. Three peg holes were drilled through the size 35 drill guide. The trial patella was placed and the knee was taken through a range of motion. There was satisfactory patellofemoral tracking. All trials were removed. The tibia was subluxed anteriorly and sized to a size 3. The proximal tibial was prepared with a size 3 keel punch. All bony cut surfaces were irrigated with sterile saline and dried. Final implants were cemented into place starting with the tibia, followed by the femur, and last the patella. A 9 mm insert trial was placed and the knee was brought into full extension. Tourniquet was turned down and the knee was copiously irrigated with sterile saline. Electrocautery was used to obtain meticulous hemostasis. Once the cement had fully cured, the insert trial was removed. Any excess cement was removed from around the hardware and capsule. Final insert chosen was a 9 mm posterior stabilized Charles II articular insert size 3-4. Stability of the insert was checked and noted to be stable. The extensor mechanism was closed using number 1 vicryls. The rest of the incision was closed in a layered fashion using 0 and 2-0 vicryls. The skin was closed using 3-0 nylon suture. Sterile xeroform, 4x4s and webril were used to cover the incision. Horacio wrap and cold pack were used to cover the dressings. The patients anesthesia was reversed without difficulty. She was taken to the PACU in stable condition. Intended weight-bearing will be as tolerated.
[2019-04-14] MEDS: Acetaminophen TAB* 325 MG PO SCH (22:05)
[2019-04-15] MEDS: Cyclobenzaprine TAB* 10 MG PO PRN ×3 (02:01→22:31)
[2019-04-15] MEDS: Lactated Ringers 1000 ML Bag* 1,000 ML IV SCH (02:02)
[2019-04-15] MEDS: ceFAZolin 1 GM ADVAN(*) 1 GM in NS 0.9% 50 ML* 50 ML IVPB SCH ×2 (03:33→10:59)
[2019-04-15] MEDS: traMADol TAB* 50 MG PO PRN ×4 (03:34→23:27)
[2019-04-15] MEDS: Acetaminophen TAB* 325 MG PO SCH ×4 (05:41→23:27)
[2019-04-15] MEDS: Thyroid TAB* 120 MG PO SCH (05:42)
[2019-04-15 05:50] LABS: Hematocrit 32 % (35-47); Hemoglobin 10.7 g/dL (12.0-16.0); Mean Platelet Volume 8.5 fL (7.4-10.4); Platelet Count 207 10^3/uL (150-450)
[2019-04-15 06:09] LABS: BUN/Creatinine Ratio 17.3 (8-20); Calcium 8.4 mg/dL (8.6-10.3); EGFR African American 94.4 (>60)
[2019-04-15] MEDS: Docusate CAP* 100 MG PO SCH ×2 (08:45→23:00)
[2019-04-15] MEDS: Vitamin THERAPEUTIC TAB PO SCH (08:45)
[2019-04-15] MEDS: Apixaban* 2.5 MG TAB PO SCH ×2 (08:45→23:00)
[2019-04-15] MEDS: Magnesium Hydroxide LIQ* 30 ML UDC PO SCH ×2 (08:46→23:00)
[2019-04-15] MEDS ORDERED: Influenza VAC *QUAD* 2019-20* 0.5 ML SYRINGE IM ONE (09:00)
--- NOTE | 2019-04-15 09:49 | PN ---
Progress Note - Progress Note Date of Service: 04/15/19 Note: POD 1 s/p left TKA: Patient is alert and comfortable in joint chair. She has been OOB with PT and is eager to go home when she meets criteria. She denies CP or SOB. She has AROM in bilateral ankles with intact sensation and 2+ DP pulses. Patient is concerned about stairs in her home so she will work with PT today with hopes of discharge this afternoon. Continue pain management.
[2019-04-15] MEDS: oxyCODONE TAB* 5 MG TAB PO PRN (12:10)
[2019-04-15] MEDS: Morphine INJ* 2 MG/ML 1 ML SYRINGE (TWO MG - NEW SYRINGE VERSION) IV PRN ×3 (13:09→22:31)
[2019-04-15] MEDS: Ondansetron INJ* 2 MG/ML VIAL IV PRN (22:31)
[2019-04-16] MEDS: Morphine INJ* 2 MG/ML 1 ML SYRINGE (TWO MG - NEW SYRINGE VERSION) IV PRN (02:25)
[2019-04-16] MEDS: Acetaminophen TAB* 325 MG PO SCH ×2 (05:42→14:02)
[2019-04-16] MEDS: traMADol TAB* 50 MG PO PRN (05:43)
[2019-04-16] MEDS: Thyroid TAB* 120 MG PO SCH (05:43)
[2019-04-16 06:13] LABS: Hematocrit 31 % (35-47); Hemoglobin 10.7 g/dL (12.0-16.0); Mean Platelet Volume 8.9 fL (7.4-10.4); Platelet Count 203 10^3/uL (150-450)
[2019-04-16] MEDS: Magnesium Hydroxide LIQ* 30 ML UDC PO SCH (09:26)
[2019-04-16] MEDS: Apixaban* 2.5 MG TAB PO SCH (09:27)
[2019-04-16] MEDS: oxyCODONE TAB* 5 MG TAB PO PRN ×2 (09:27→14:02)
[2019-04-16] MEDS: Docusate CAP* 100 MG PO SCH (09:27)
[2019-04-16] MEDS: Vitamin THERAPEUTIC TAB PO SCH (09:27)
[2019-04-16] MEDS: Cyclobenzaprine TAB* 10 MG PO PRN (11:45)
--- NOTE | 2019-04-16 11:58 | PN ---
Progress Note - Progress Note Date of Service: 04/16/19 SOAP: Subjective: [Pt seen OOB in chair. Patient doing well, eager for discharge today. She states pain is well managed with current medications. She did have muscle spasms but resolve with Flexeril. She has met PT goals. States she walked down hallway with them today. She denies CP, SOB, f/v, n/v, calf pain. ] Objective: [General: NAD. Seen in chair. LLE: Dressing changed today. Incision C/D/I with no erythema or signs of infection. She is able to lift her leg for dressing change. Calf soft and nontender with no palpable cords. + ankle DF/PF. NVI.] Assessment: [POD#2 s/p Left TKA] Plan: [Patient doing well ready for D/C. PT goals met Will be D/C with percocet and flexeril for pain management/muscle spasms Eliquis 2.5mg BID x30 day for DVT ppx PT outpatient] Vital Signs Temp Pulse Resp BP Pulse Ox 98.2 F 87 14 133/59 96 04/16/19 08:23 04/16/19 08:23 04/16/19 11:45 04/16/19 08:23 04/16/19 08:23 Laboratory Last Values Hgb 10.7 g/dL (12.0-16.0) L 04/16/19 05:37 Hct 31 % (35-47) L 04/16/19 05:37 Plt Count 203 10^3/uL (150-450) 04/16/19 05:37 MPV 8.9 fL (7.4-10.4) 04/16/19 05:37 Sodium 136 mmol/L (135-145) 04/15/19 05:29 Potassium 4.0 mmol/L (3.5-5.0) 04/15/19 05:29 Chloride 104 mmol/L (101-111) 04/15/19 05:29 Carbon Dioxide 30 mmol/L (22-32) 04/15/19 05:29 Anion Gap 2 mmol/L (2-11) 04/15/19 05:29 BUN 13 mg/dL (6-24) 04/15/19 05:29 Creatinine 0.75 mg/dL (0.51-0.95) 04/15/19 05:29 Est GFR ( Amer) 94.4 (>60) 04/15/19 05:29 Est GFR (Non-Af Amer) 78.0 (>60) 04/15/19 05:29 BUN/Creatinine Ratio 17.3 (8-20) 04/15/19 05:29 Glucose 169 mg/dL (70-100) H 04/15/19 05:29 POC Glucose (mg/dL) 121 mg/dL (70-100) H 04/14/19 09:17 Calcium 8.4 mg/dL (8.6-10.3) L 04/15/19 05:29
--- NOTE | 2019-04-16 12:07 | DS ---
Orthopedic Discharge Summary - Discharge Summary Date of Admission:04/14/19 Date of Discharge: 04/16/19 Date of Surgery: 04/14/19 Attending Orthopedic Provider: Dr. Schuster Pre-operative Diagnosis: Left knee arthritis Operative Procedure: Left total knee replacement Disposition of Patient: Home Condition of Patient: Good History: JAZMIN SHIPLEY is a 63 year old F with years of increasingly severe left knee pain. Patient has failed conservative management and has elected to undergo a left total knee replacement Hospital Course: JAZMIN was admitted to [facility] on 04/14/19. Patient underwent a left total knee replacement without complication followed by a brief recovery in PACU and transfer to the Short Stay Surgical Unit in stable condition. Our hospitalist service, physical therapy and occupational therapy also participated in this patients care. Post-op day 1: patient was alert and in no acute distress. Dressing was clean, dry and intact. Operative extremity dorsiflexion and plantarflexion intact, sensation intact to light touch distally , DP2+. Post-op day two: dressing was changed, incision was clean, dry and intact. Patient was deemed to be medically and orthopedically stable for discharge. Physical therapy goals were met. Home Medications Medication Instructions Recorded Confirmed Type Mineral Thyroid 120 mcg PO QAM 06/21/14 04/14/19 History Ibuprofen TAB* 400 mg PO TID PRN 06/21/14 04/14/19 History Leutin 40 mg PO BEDTIME 02/10/19 04/14/19 History Metamucil Powder 1 tbsp PO QAM 04/04/19 04/14/19 History Afrin 1 spray ALT NARE BID 04/14/19 04/14/19 History Apixaban* [Eliquis*] 2.5 mg PO BID tab 04/15/19 Rx oxyCODONE/Acetamin 5/325 MG* 2 tab PO Q4H PRN tab 04/15/19 Rx [Percocet 5/325 TAB*] Cyclobenzaprine TAB* [Flexeril 10 10 mg PO Q8H PRN 7 Days #28 tab 04/16/19 Rx MG TAB*] Discharge Instructions following Orthopedic Surgery: Activity: * Weight Bearing as tolerated * Continue physical therapy and occupational therapy exercises as shown Wound care: * OK to shower on post-op day 3, no bathing, swimming, or submerging wound. * Use gentle soap, pat dry. Cover with gauze, ESTEFANI wrap or tape. * Visiting home nurse to do wound checks. Call Orthopedic office for: * Increased drainage * Redness * Increased pain * Fever Go to ER with shortness of breath or chest pain. Diet: * Regular diet * Increase fluids and fiber to prevent constipation. * Continue to use stool softeners, call office if no bowel motion within 48 hours. Medications See Home Medication List in your packet for medications that you should take after discharge. DVT Prophylaxis: Eliquis Dosin.5 mg, 1 tab every 12 hours x 30 days Pain Control: Percocet Dosin/325 mg 1-2 tabs by mouth every 4-6 hours as needed for pain. Maximum of 10 tabs per day. Please note that Percocet contains Tylenol (acetaminophen). Maximum daily dose of Tylenol is 4000 mg from all sources. Clycobenzaprine 10mg 1 tab every 8 hours as needed for muscle spasms. Antibiotics are required prior to any dental work. FOLLOW UP: Follow up with [SOO] Within 10-14 days, call for appointment Please call our office with any questions or concerns ([phone])
[2019-04-16 12:57] VITALS: BP 122/66
[2019-04-16] MEDS ORDERED: Bisacodyl SUPP* 10 MG SUPP PR PRN (14:12)
== END 2019-04-16 16:20 | disposition home or self-care (01) | DRG 302 ==
LOC: AA 04-14 07:56 → SSU 04-14 14:12
PROVIDERS: ADMIT Orthopaedic Surgery Adult Reconstructive Orthopaedic Surgery; ATTEND Orthopaedic Surgery Adult Reconstructive Orthopaedic Surgery
PROC: 8E0Y0CZ Robotic Assisted Procedure of Lower Extremity, Open Approach (ICD-10-PCS; 2019-04-14)
PROC: 0SRD069 Replacement of Left Knee Joint with Oxidized Zirconium on Polyethylene Synthetic Substitute, Cemented, Open Approach (ICD-10-PCS; principal; 2019-04-14 10:45)
DX: M17.12 Unilateral primary osteoarthritis, left knee (principal); E03.9 Hypothyroidism, unspecified; E11.9 Type 2 diabetes mellitus without complications; M25.462 Effusion, left knee; E78.5 Hyperlipidemia, unspecified; I10 Essential (primary) hypertension; G47.33 Obstructive sleep apnea (adult) (pediatric); I49.3 Ventricular premature depolarization; M62.838 Other muscle spasm; R11.0 Nausea; F41.9 Anxiety disorder, unspecified; M25.762 Osteophyte, left knee; Z79.890 Hormone replacement therapy; Z79.899 Other long term (current) drug therapy; Z82.3 Family history of stroke; Z72.89 Other problems related to lifestyle; Z23 Encounter for immunization
CPT/HCPCS: 36415; 80048; 85014; 85018; 85049; 88305; 88311; 90686; A9270-GY; C1776; J0360; J0690; J1100; J1170; J1885; J2250; J2270; J2405; J2704; J2765; J2795; J3010